=== PATIENT | female | born 1970 | race Two or more races ===

== ENCOUNTER 2023-07-15 20:29 | Inpatient (IN) | payer MEDICAID, OTHER ==
[~2023-07-15] VITALS: Ht 152.4 cm; Wt 75.2 kg
[2023-07-15 21:15] VITALS: PULSE 74; RESP 25; O2SAT 96
[2023-07-15] MEDS ORDERED: LABETALOL HCL 5 MG/ML 4ML SYRINGE IV ONE (21:15)
[2023-07-15 21:30] LABS: Basophils # (auto) 0.1 10 ^3/uL (0-0.2); Basophils % (auto) 0.8 % (0.0-2.0); Eosinophils # (auto) 0.1 10 ^3/uL (0-0.8); Eosinophils % (auto) 0.6 % (0.0-7.0); Hematocrit 43.1 % (36.0-46.0); Hemoglobin 14.3 g/dL (12.2-16.2); Lymphocytes # (auto) 1.6 10 ^3/uL (0.4-5.4); Lymphocytes % (auto) 12.3 % (10.0-50.0); Mean Corpuscular Hemoglobin 28.5 pg (28.0-32.0); Mean Corpuscular Hgb Conc. 33.2 g/dL (32.0-36.0); Monocytes # (auto) 0.6 10 ^3/uL (0-1.3); Monocytes % (auto) 4.4 % (0.0-12.0); Neutrophils # (auto) 10.8 10 ^3/uL (1.6-8.6); Neutrophils % (auto) 81.9 % (37.0-80.0); Red Blood Cells 5.01 10^6/uL (4.0-5.20); Red Cell Distribution Width 13.8 % (11.8-14.3); White Blood Cell 13.1 10^3/uL (4.4-10.8)
[2023-07-15] MEDS ORDERED: IOHEXOL 350 MG/ML 100ML IJ ONE (22:04)
[2023-07-15 22:46] LABS: Alanine Aminotransferase 21 U/L (7-40); Albumin 3.5 g/dL (3.2-4.8); Alkaline Phosphatase 131 U/L (46-116); Anion Gap 5.2 (5-15); Aspartate Aminotransferase 20 U/L (13-40); BUN/Creatinine Ratio 16.5 (10.0-20.0); Bilirubin, Total 0.4 mg/dL (0.2-1.0); Blood Urea Nitrogen 16 mg/dL (9-23); Calcium 9.2 mg/dL (8.7-10.4); Carbon Dioxide 23.8 mmol/L (20-30); Chloride 105 mmol/L (98-107); Glucose 127 mg/dL (74-106); Potassium 3.8 mmol/L (3.5-5.1); Sodium 134 mmol/L (136-145); Total Protein 6.4 g/dL (5.7-8.2)
[2023-07-15] MEDS ORDERED: ONDANSETRON HCL 4 MG/2 ML VIAL IV PRN (23:30)
[2023-07-15] MEDS ORDERED: NITROGLYCERIN 0.4 MG SL TAB SL PRN (23:30)
[2023-07-15] MEDS ORDERED: DEXTROSE (50%) 50ML SYRG IV PRN (23:30)
[2023-07-15] MEDS ORDERED: MORPHINE SULFATE INJ 2 MG/ml SYRG IV PRN (23:30)
[2023-07-15] MEDS ORDERED: ACETAMINOPHEN 325 MG TAB PO PRN (23:30)
[2023-07-16] MEDS: hydrALAZINE HCL 20 MG/ML VL IV PRN ×2 (00:48→09:14)
[2023-07-16] MEDS: InsuLIN REG 1unit/0.01ml Soln (100units/ml) SC SCH ×4 (06:00→19:01)
[2023-07-16 06:15] LABS: Basophils # (auto) 0.1 10 ^3/uL (0-0.2); Basophils % (auto) 0.4 % (0.0-2.0); Eosinophils # (auto) 0.1 10 ^3/uL (0-0.8); Eosinophils % (auto) 0.9 % (0.0-7.0); Hemoglobin 13.8 g/dL (12.2-16.2); Lymphocytes # (auto) 2.3 10 ^3/uL (0.4-5.4); Lymphocytes % (auto) 18.9 % (10.0-50.0); Mean Corpuscular Hemoglobin 28.9 pg (28.0-32.0); Mean Corpuscular Hgb Conc. 33.6 g/dL (32.0-36.0); Mean Corpuscular Volume 86.2 fL (80.0-100.0); Monocytes # (auto) 0.7 10 ^3/uL (0-1.3); Monocytes % (auto) 6.1 % (0.0-12.0); Neutrophils # (auto) 8.8 10 ^3/uL (1.6-8.6); Neutrophils % (auto) 73.7 % (37.0-80.0); Nucleated Red Blood Cells % 0.1 %; Red Blood Cells 4.76 10^6/uL (4.0-5.20); Red Cell Distribution Width 13.7 % (11.8-14.3)
[2023-07-16] MEDS: ACCU-CHEK COMFORT CURVE STRIP VI SCH ×4 (06:25→19:02)
[2023-07-16 08:00] VITALS: PULSE 76; RESP 17; O2SAT 95
[2023-07-16 08:33] LABS: Urine Bacteria NONE SEEN /hpf (None Seen); Urine Blood Negative /uL (Negative); Urine Clarity Clear (Clear); Urine Color Yellow (Yellow); Urine Protein, UAD 3+ (Negative); Urine Urobilinogen Normal (Negative); Urine WBC 3 /hpf (0 - 5); Urine pH 6.5 (5.0-8.0)
[2023-07-16] MEDS: ENOXAPARIN SOD 40 MG/0.4 ML SYRINGE SC SCH (11:29)
[2023-07-16] MEDS: PANTOPRAZOLE 40 MG TAB PO SCH (11:30)
[2023-07-16] MEDS: amLODIPine BESYLATE 5 MG TAB PO SCH (11:33)
[2023-07-16] MEDS: LISINOPRIL 20 MG TAB PO SCH (11:34)
[2023-07-16] MEDS: LABETALOL HCL 5 MG/ML 4ML SYRINGE IV PRN ×4 (12:19→23:21)
[2023-07-16] MEDS ORDERED: ASPirin 81 mg TAB PO ONE (13:30)
[2023-07-16 19:30] VITALS: PULSE 72; RESP 17; O2SAT 94
[2023-07-16 21:16] LABS: COVID19 ANTIGEN SOFIA FIA NEGATIVE (NEGATIVE)
[2023-07-16] MEDS ORDERED: ATORVASTATIN 20 MG TAB PO SCH (22:00)
[2023-07-16] MEDS: ATORVASTATIN 20 MG TAB PO SCH (22:30)
[2023-07-17] VITALS (8 sets, daily range): BP systolic 127–189; BP diastolic 72–89; PULSE 67–77; RESP 18–20; TEMP 97.9–98.4; O2SAT 94–97
[2023-07-17] MEDS: ACCU-CHEK COMFORT CURVE STRIP VI SCH ×5 (00:56→23:23)
[2023-07-17] MEDS: LABETALOL HCL 5 MG/ML 4ML SYRINGE IV PRN ×3 (00:59→21:28)
[2023-07-17] MEDS ORDERED: METF-371 PO (01:02)
[2023-07-17] MEDS ORDERED: ASPI81CH74 PO (01:02)
[2023-07-17] MEDS ORDERED: ROSU10TA64 PO (01:02)
[2023-07-17] MEDS ORDERED: AMLO1TAB23 PO (01:02)
[2023-07-17] MEDS ORDERED: GAB100C PO (01:02)
[2023-07-17] MEDS: InsuLIN REG 1unit/0.01ml Soln (100units/ml) SC SCH ×5 (01:06→23:23)
[2023-07-17] MEDS: LISINOPRIL 20 MG TAB PO SCH (09:18)
[2023-07-17] MEDS: PANTOPRAZOLE 40 MG TAB PO SCH (09:18)
[2023-07-17] MEDS: amLODIPine BESYLATE 5 MG TAB PO SCH (09:19)
[2023-07-17] MEDS: ENOXAPARIN SOD 40 MG/0.4 ML SYRINGE SC SCH (09:19)
[2023-07-17] MEDS ORDERED: ASPirin 81 mg TAB PO SCH (10:00)
[2023-07-17] MEDS: ASPirin 81 mg TAB PO SCH (10:20)
[2023-07-17] MEDS: hydrALAZINE HCL 20 MG/ML VL IV PRN (16:48)
[2023-07-17] MEDS: ATORVASTATIN 20 MG TAB PO SCH (21:25)
[2023-07-18] VITALS (8 sets, daily range): BP systolic 109–174; BP diastolic 54–94; PULSE 62–92; RESP 16–18; TEMP 98–98.3; O2SAT 94–97
[2023-07-18] MEDS: ACCU-CHEK COMFORT CURVE STRIP VI SCH ×4 (05:41→23:08)
[2023-07-18] MEDS: InsuLIN REG 1unit/0.01ml Soln (100units/ml) SC SCH ×4 (05:42→23:11)
[2023-07-18] MEDS: ASPirin 81 mg TAB PO SCH (09:40)
[2023-07-18] MEDS: amLODIPine BESYLATE 5 MG TAB PO SCH (09:40)
[2023-07-18] MEDS: ENOXAPARIN SOD 40 MG/0.4 ML SYRINGE SC SCH (09:41)
[2023-07-18] MEDS: PANTOPRAZOLE 40 MG TAB PO SCH (09:41)
[2023-07-18] MEDS: LISINOPRIL 20 MG TAB PO SCH (09:41)
[2023-07-18] MEDS: hydrALAZINE HCL 20 MG/ML VL IV PRN ×2 (09:42→20:10)
[2023-07-18] MEDS: LABETALOL HCL 5 MG/ML 4ML SYRINGE IV PRN (18:54)
[2023-07-18] MEDS: ATORVASTATIN 20 MG TAB PO SCH (21:14)
[2023-07-19] VITALS (7 sets, daily range): BP systolic 148–167; BP diastolic 74–88; PULSE 72–79; RESP 17–20; TEMP 98.2–98.8; O2SAT 92–96
[2023-07-19] MEDS: LABETALOL HCL 5 MG/ML 4ML SYRINGE IV PRN (05:06)
[2023-07-19] MEDS: ACCU-CHEK COMFORT CURVE STRIP VI SCH ×4 (06:08→23:20)
[2023-07-19] MEDS: InsuLIN REG 1unit/0.01ml Soln (100units/ml) SC SCH ×4 (06:16→23:25)
[2023-07-19] MEDS: hydrALAZINE HCL 20 MG/ML VL IV PRN ×2 (06:21→21:13)
[2023-07-19] MEDS: LISINOPRIL 20 MG TAB PO SCH (10:24)
[2023-07-19] MEDS: PANTOPRAZOLE 40 MG TAB PO SCH (10:24)
[2023-07-19] MEDS: ASPirin 81 mg TAB PO SCH (10:25)
[2023-07-19] MEDS: ENOXAPARIN SOD 40 MG/0.4 ML SYRINGE SC SCH (10:25)
[2023-07-19] MEDS: amLODIPine BESYLATE 5 MG TAB PO SCH (10:25)
[2023-07-19 15:50] LABS: Basophils # (auto) 0.1 10 ^3/uL (0-0.2); Basophils % (auto) 0.9 % (0.0-2.0); Eosinophils # (auto) 0.2 10 ^3/uL (0-0.8); Eosinophils % (auto) 1.5 % (0.0-7.0); Hematocrit 41.4 % (36.0-46.0); Hemoglobin 13.3 g/dL (12.2-16.2); Lymphocytes # (auto) 2.7 10 ^3/uL (0.4-5.4); Mean Corpuscular Hemoglobin 28.1 pg (28.0-32.0); Mean Corpuscular Hgb Conc. 32.2 g/dL (32.0-36.0); Mean Corpuscular Volume 87.2 fL (80.0-100.0); Monocytes # (auto) 0.9 10 ^3/uL (0-1.3); Monocytes % (auto) 8.1 % (0.0-12.0); Neutrophils # (auto) 7.8 10 ^3/uL (1.6-8.6); Neutrophils % (auto) 66.5 % (37.0-80.0); Red Blood Cells 4.74 10^6/uL (4.0-5.20); Red Cell Distribution Width 14.2 % (11.8-14.3); White Blood Cell 11.7 10^3/uL (4.4-10.8)
[2023-07-19 16:06] LABS: Chloride 108 mmol/L (98-107); Potassium 4.7 mmol/L (3.5-5.1); Sodium 139 mmol/L (136-145)
[2023-07-19 16:07] LABS: Anion Gap 6.3 (5-15); Carbon Dioxide 24.7 mmol/L (20-30)
[2023-07-19 16:08] LABS: Calcium 9.9 mg/dL (8.5-10.1)
[2023-07-19 16:12] LABS: BUN/Creatinine Ratio 18.9 (10.0-20.0); Blood Urea Nitrogen 25 mg/dL (9-23); Glucose 146 mg/dL (74-106)
[2023-07-19] MEDS: ATORVASTATIN 20 MG TAB PO SCH (21:13)
[2023-07-20] VITALS (7 sets, daily range): BP systolic 128–173; BP diastolic 73–87; PULSE 63–75; RESP 17–19; TEMP 97.9–98.5; O2SAT 96–97
[2023-07-20] MEDS: LABETALOL HCL 5 MG/ML 4ML SYRINGE IV PRN ×3 (04:30→23:14)
[2023-07-20] MEDS: ACCU-CHEK COMFORT CURVE STRIP VI SCH ×4 (05:33→23:37)
[2023-07-20] MEDS: InsuLIN REG 1unit/0.01ml Soln (100units/ml) SC SCH ×4 (05:40→23:37)
[2023-07-20 06:38] LABS: Anion Gap 7.3 (5-15); Carbon Dioxide 20.7 mmol/L (20-30); Chloride 111 mmol/L (98-107); Potassium 4.1 mmol/L (3.5-5.1); Sodium 139 mmol/L (136-145)
[2023-07-20 06:39] LABS: Calcium 9.6 mg/dL (8.7-10.4)
[2023-07-20 06:44] LABS: BUN/Creatinine Ratio 16.4 (10.0-20.0); Blood Urea Nitrogen 20 mg/dL (9-23); Glucose 149 mg/dL (74-106)
[2023-07-20] MEDS: ASPirin 81 mg TAB PO SCH (09:21)
[2023-07-20] MEDS: ENOXAPARIN SOD 40 MG/0.4 ML SYRINGE SC SCH (09:21)
[2023-07-20] MEDS: amLODIPine BESYLATE 5 MG TAB PO SCH (09:22)
[2023-07-20] MEDS: PANTOPRAZOLE 40 MG TAB PO SCH (09:22)
[2023-07-20] MEDS: LISINOPRIL 20 MG TAB PO SCH (09:22)
[2023-07-20] MEDS: ATORVASTATIN 20 MG TAB PO SCH (21:27)
[2023-07-21 05:00] VITALS: BP 166/78; PULSE 63; RESP 17; TEMP 97.9; O2SAT 97
[2023-07-21] MEDS: ACCU-CHEK COMFORT CURVE STRIP VI SCH ×2 (05:14→11:56)
[2023-07-21] MEDS: InsuLIN REG 1unit/0.01ml Soln (100units/ml) SC SCH ×2 (05:14→12:12)
[2023-07-21] MEDS: hydrALAZINE HCL 20 MG/ML VL IV PRN ×2 (06:33→14:15)
[2023-07-21 08:00] VITALS: PULSE 65
[2023-07-21 09:00] VITALS: BP 180/91; PULSE 70; RESP 20; TEMP 98.1; O2SAT 92
[2023-07-21] MEDS: ASPirin 81 mg TAB PO SCH (10:20)
[2023-07-21] MEDS: LISINOPRIL 20 MG TAB PO SCH (10:22)
[2023-07-21] MEDS: amLODIPine BESYLATE 5 MG TAB PO SCH (10:22)
[2023-07-21] MEDS: PANTOPRAZOLE 40 MG TAB PO SCH (10:22)
[2023-07-21] MEDS: ENOXAPARIN SOD 40 MG/0.4 ML SYRINGE SC SCH (10:23)
[2023-07-21 10:33] LABS: Triglycerides 141 mg/dL (< 150)
[2023-07-21 10:34] LABS: LDL Cholesterol 57 mg/dL (< 100)
[2023-07-21 10:35] LABS: Cholesterol 132 mg/dL (< 200); HDL Cholesterol 53 mg/dL (40-59)
[2023-07-21] MEDS ORDERED: LISI-713 PO (13:23)
[2023-07-21 13:57] VITALS: PULSE 70; RESP 20; TEMP 98.1; O2SAT 92
[2023-07-21 14:57] VITALS: BP 159/87
[2023-07-21] MEDS: LABETALOL HCL 5 MG/ML 4ML SYRINGE IV PRN (15:06)
== END 2023-07-21 18:30 | disposition home or self-care (01) | DRG 199 ==
LOC: ER 20:29 → TELE 23:34 → TELE-CENTR 07-16 23:38
PROVIDERS: ADMIT Nurse Practitioner; ATTEND Nurse Practitioner Acute Care
DX: I16.0 Hypertensive urgency (principal); I63.9 Cerebral infarction, unspecified; E11.9 Type 2 diabetes mellitus without complications; E66.9 Obesity, unspecified; H49.9 Unspecified paralytic strabismus; H53.2 Diplopia; H54.7 Unspecified visual loss; H55.00 Unspecified nystagmus; Z79.82 Long term (current) use of aspirin; Z79.899 Other long term (current) drug therapy; Z83.3 Family history of diabetes mellitus; Z88.6 Allergy status to analgesic agent; I10 Essential (primary) hypertension; E78.5 Hyperlipidemia, unspecified; Z68.31 Body mass index [BMI] 31.0-31.9, adult
CPT/HCPCS: 36415; 70470; 70551; 80048; 80053; 80061; 81001; 82962; 83036; 83605; 83735; 84484; 84702; 85025; 87426; 93005; 93306; 93886; 96374; 99291; G0378; J1815; J3490